=== PATIENT | male | born 1985 | race Caucasian/White ===

== ENCOUNTER 2017-02-09 15:35 | Emergency (ER) | payer SELFPAY ==
[2017-02-09 16:21] VITALS: BP 135/79
[2017-02-09] MEDS ORDERED: Tetan/Diph/Pertus SYR(Tdap)* 0.5 ML SYR(BOOSTRIX) use SYR IM ONE (17:31)
[2017-02-09] MEDS ORDERED: cefTRIAXone VIAL(*) 1,000 MG VIAL IM ONE (17:31)
--- NOTE | 2017-02-09 17:31 | UC ---
Skin Complaint HPI - HPI Summary HPI Summary: PICKING UP GARBAGE YESTERDAY AND SUFFERED A LACERATION IN WEBSPACE BETWEEN 4TH AND 5TH FINGERS LEFT HAND. TODAY DEVELOPED SWELLING, REDNESS AND PAIN. NOT UTD TETANUS. NO FEVER. - History of Current Complaint Chief Complaint: UCWounds Time Seen by Provider: 02/09/17 17:21 Stated Complaint: HAND INJURY Hx Obtained From: Patient Onset/Duration: Sudden Onset, Lasting Hours, Still Present Timing: Constant Onset Severity: Mild Current Severity: Moderate Pain Intensity: 3 Pain Scale Used: 0-10 Numeric Location: Hand (Left) Character: Swelling, Pain, Redness Aggravating: Touch - MOVEMENT Alleviating: Nothing Associated Signs & Symptoms: Positive: Tenderness, Red Streaks - Allergy/Home Medications Allergies/Adverse Reactions: Allergies Allergy/AdvReac Type Severity Reaction Status Date / Time Bee Venom Allergy Severe Anaphylatic Verified 06/01/16 13:59 Shock Iodine Allergy Severe Anaphylatic Verified 06/01/16 13:59 Shock narcotic pain medication Allergy 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/01/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 Home Medications: Home Medications Gabapentin 2,400 mg PO DAILY 02/09/17 [History Confirmed 02/09/17] Suboxone 4 mg SL DAILY 02/09/17 [History Confirmed 02/09/17] buPROPion TAB* [Wellbutrin TAB*] 1 tab PO BID 02/09/17 [History Confirmed ] Review of Systems Constitutional: Negative Skin: Other - RED STREAKS, LACERATION Respiratory: Negative Cardiovascular: Negative Gastrointestinal: Negative Musculoskeletal: Arthralgia, Decreased ROM, Edema All Other Systems Reviewed And Are Negative: Yes PMH/Surg Hx/FS Hx/Imm Hx Endocrine History Of: Denies: Diabetes, Thyroid Disease Cardiovascular History Of: Denies: Cardiac Disorders, Hypertension Respiratory History Of: Denies: COPD, Asthma GI/ History Of: Denies: Ulcer Psychological History Of: Reports: Anxiety, Depression - Surgical History Surgical History: Yes Surgery Procedure, Year, and Place: ingrown toenails. Hernia repair - Family History Known Family History: Positive: Cardiac Disease, Hypertension - Social History Alcohol Use: None Substance Use Type: Marijuana Substance Use Comment - Amount & Last Used: occasional- in recovery on suboxone Smoking Status (MU): Current Every Day Smoker Type: Cigarettes Amount Used/How Often: <1 PPD Length of Time of Smoking/Using Tobacco: 11 years Have You Smoked in the Last Year: Yes - Immunization History Most Recent Influenza Vaccination: season Most Recent Tetanus Shot: unknown Physical Exam Triage Information Reviewed: Yes Appearance: Well-Appearing, No Pain Distress, Well-Nourished Vital Signs: Initial Vital Signs Temp 99.3 F 02/09/17 16:12 Pulse 78 02/09/17 16:12 Resp 18 02/09/17 16:12 BP 135/79 02/09/17 16:12 Pulse Ox 99 02/09/17 16:12 Vital Signs Reviewed: Yes ENT: Positive: Hearing grossly normal Neck: Positive: Supple Respiratory: Positive: No respiratory distress, No accessory muscle use Cardiovascular: Positive: Pulses Normal Abdomen Description: Positive: Soft Musculoskeletal: Positive: Edema @ - LEFT HAND SWELLING AND REDNESS EXTENDING PROXIMALLY UP FOREARM. TTP. Neurological: Positive: Alert Psychological: Positive: Age Appropriate Behavior Skin: Positive: Other - LEFT HAND SWELLING AND REDNESS EXTENDING PROXIMALLY UP FOREARM. 0.8CM LACERATION WEBSPACE BETWEEN 4TH AND 5TH FINGERS. Course/Dx - Course Course Of Treatment: ROCEPHIN 1G IM, TORADOL 60MG IM GIVEN. TDAP BOOSTED. BACTRIM BID. FOLLOW-UP IN ER IN 2-3 DAYS IF NOT IMPROVING. KEEP COOL, CLEAN AND DRY. - Diagnoses Provider Diagnoses: 1. LACERATION LEFT HAND - NO REPAIR. 2. CELLULITIS LEFT HAND Discharge - Discharge Plan Condition: Stable Disposition: HOME Prescriptions: Ibuprofen TAB* [Motrin TAB* 800 MG] 800 mg PO Q8H PRN #30 tab PRN Reason: Pain Sulfamethox/Trimethoprim DS* [Bactrim DS 800/160 TAB*] 1 tab PO BID #26 tab Patient Education Materials: Cellulitis (ED), Laceration Without Closure (ED) Forms: *Work Release Referrals: Rivera Thompson MD [Medical Doctor] - 3 Days Additional Instructions: YOU HAVE DEVELOPED A SKIN INFECTION FROM THE CUT IN BETWEEN YOUR FINGERS. THIS HAS NOT BEEN CLOSED DUE TO CONCERN ABOUT DEVELOPING WORSENING INFECTION AND DRAINAGE. TAKE THE ANTIBIOTICS PRESCRIBED STARTING TONIGHT. YOU SHOULD NOTICE IMPROVEMENT WITHIN THE NEXT 48 HOURS. GO TO THE ER WITHOUT FAIL IF YOU DO NOT IMPROVE EXPECTED. TETANUS IMMUNIZATION GIVEN: You have been given an immunization against tetanus. Please record this in your records. In general, a booster is needed only once every 10 years. The tetanus shot protects against tetanus or "lockjaw," which is a complication of certain wound infections (the tetanus shot cannot protect against the actual infection). The immunization site may become warm and red due to local reaction. If this occurs, apply warm compresses and take aspirin or ibuprofen to reduce inflammation and discomfort. Return for evaluation if the reaction becomes severe.
[2017-02-09] MEDS ORDERED: Lidocaine 1% MPF* 2 ML VIAL ONE (17:43)
[2017-02-09] MEDS ORDERED: Ketorolac INJ* 60 MG/2 ML VIAL IM ONE (18:05)
== END 2017-02-09 19:12 | disposition home or self-care (01) ==
LOC: UCEAST 15:35
DX: S61.412A Laceration without foreign body of left hand, initial encounter (principal); L03.114 Cellulitis of left upper limb; W45.8XXA Other foreign body or object entering through skin, initial encounter; Y93.89 Activity, other specified; Y92.9 Unspecified place or not applicable; Z23 Encounter for immunization; Z88.5 Allergy status to narcotic agent; F17.210 Nicotine dependence, cigarettes, uncomplicated
CPT/HCPCS: 90715; 96372; 99212; G0463; J0696; J1885

== ENCOUNTER 2017-05-29 13:16 | Emergency (ER) | payer SELFPAY ==
[2017-05-29 13:28] VITALS: BP 138/76
[2017-05-29] MEDS ORDERED: diPHENhydraMINE PO* 50 MG PO ONE (13:40)
[2017-05-29] MEDS ORDERED: predniSONE TAB* 20 MG PO ONE (13:40)
--- NOTE | 2017-05-29 13:41 | UC ---
Allergic Reaction HPI - HPI Summary HPI Summary: concerned he may have a reaction to a bee sting that he just recieved has had reactions in the past---no longer has an epi-pen - History of Current Complaint Chief Complaint: UCAllergicReaction Stated Complaint: POSSIBLE ALLERGIC REACTION Time Seen by Provider: 05/29/17 13:36 Hx Obtained From: Patient Onset/Duration: Sudden Onset Severity Initially: Mild Severity Currently: Mild Pain Intensity: 1 - at site of sing right hand 2 nd knuckle Pain Scale Used: 0-10 Numeric Location: Discrete @ Aggrevating Factor(s): Nothing Alleviating Factor(s): Nothing Associated Signs And Symptoms: Positive: Negative - Related Hx Possible Reaction To: Insect - Allergies/Home Medications Allergies/Adverse Reactions: Allergies Allergy/AdvReac Type Severity Reaction Status Date / Time Bee Venom Allergy Severe Anaphylatic Verified 05/29/17 13:28 Shock Iodine Allergy Severe Anaphylatic Verified 05/29/17 13:28 Shock narcotic pain medication Allergy Severe hx of Uncoded 05/29/17 13:28 addiction PMH/Surg Hx/FS Hx/Imm Hx Previously Healthy: No - early recovery opiate abuse - Surgical History Surgical History: Yes Surgery Procedure, Year, and Place: ingrown toenails. Hernia repair - Family History Known Family History: Positive: Cardiac Disease, Hypertension - Social History Occupation: Employed Part-time Lives: With Family Alcohol Use: None Substance Use Type: Marijuana Substance Use Comment - Amount & Last Used: occasional- in recovery on suboxone Smoking Status (MU): Current Every Day Smoker Type: Cigarettes Amount Used/How Often: <1 PPD Length of Time of Smoking/Using Tobacco: 11 years Have You Smoked in the Last Year: Yes Cessation Counseling: Patient Advised to Stop - Immunization History Most Recent Influenza Vaccination: season Most Recent Tetanus Shot: unknown Review of Systems Constitutional: Negative Skin: Other - erythema at site of sting right hand 2nd mcp joint Eyes: Negative ENT: Negative Respiratory: Negative Cardiovascular: Negative Gastrointestinal: Negative Genitourinary: Negative Motor: Negative Neurovascular: Negative Musculoskeletal: Negative Neurological: Negative Psychological: Negative All Other Systems Reviewed And Are Negative: Yes Physical Exam Triage Information Reviewed: Yes Appearance: Well-Appearing, No Pain Distress, Well-Nourished Vital Signs: Initial Vital Signs Temp 99 F 05/29/17 13:23 Pulse 106 07/22/17 13:23 Resp 20 05/29/17 13:23 BP 138/76 05/29/17 13:23 Pulse Ox 99 05/29/17 13:23 Vital Signs Reviewed: Yes Eye Exam: Normal Eyes: Positive: Conjunctiva Clear ENT Exam: Normal ENT: Positive: Normal ENT inspection, Hearing grossly normal, Pharynx normal. Negative: Nasal congestion, Nasal drainage, Trismus, Muffled/hoarse voice Dental Exam: Normal Neck exam: Normal Neck: Positive: Supple, Nontender, No Lymphadenopathy Respiratory Exam: Normal Respiratory: Positive: Chest non-tender, Lungs clear, Normal breath sounds, No respiratory distress, No accessory muscle use Cardiovascular Exam: Normal Cardiovascular: Positive: RRR, No Murmur, Pulses Normal, Brisk Capillary Refill Abdominal Exam: Normal Abdomen Description: Positive: Nontender, No Organomegaly, Soft Bowel Sounds: Positive: Present Musculoskeletal Exam: Normal Musculoskeletal: Positive: Strength Intact, ROM Intact, No Edema Neurological Exam: Normal Neurological: Positive: Alert, Muscle Tone Normal, Fatigued Psychological Exam: Normal Skin Exam: Normal, Other Skin: Positive: Other - erythema right hand MCP joint---no hives Re-Evaluation - Re-Evaluation Second Eval Re-Evaluation Time: 14:00 Change: Improved - feels better--- Allergic Reaction Course/Dx - Course Course Of Treatment: continue prednisone and benadryl for 4 days ice to sting follow prn - Differential Dx/Diagnosis Differential Diagnosis/HQI/PQRI: Anaphylaxis, Bronchospasm, Local Allergic Reaction, Urticaria Provider Diagnoses: 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
== END 2017-05-29 14:42 | disposition home or self-care (01) ==
LOC: UCEAST 13:16
DX: T63.441A Toxic effect of venom of bees, accidental (unintentional), initial encounter (principal); Y92.9 Unspecified place or not applicable; F17.200 Nicotine dependence, unspecified, uncomplicated
CPT/HCPCS: 99212; A9270-GY; G0463; J7512

== ENCOUNTER 2018-06-09 09:39 | Emergency (ER) | payer BC, MEDICAID ==
[2018-06-09 10:08] VITALS: BP 119/77
--- NOTE | 2018-06-09 10:31 | ED ---
Throat Pain/Nasal Congestion - HPI Summary HPI Summary: 32-year-old male presents with discharge and eye redness for the past 2 days. He denies any foreign body in the eye. He doesn't wear contacts or glasses. He denies any change in vision. He admits to photophobia. his eye feel itchy. He states he doesn't have a history of pinkeye. He states that it only in right eye and is not in his left. He denies any history of seasonal allergies. He's never had this before. He denies any sinus congestion. no fevers. No sore throat. He hasn't tried anything.for his symptoms. has been waking up with eye crusted and pus drainage - History of Current Complaint Chief Complaint: UCEye Time Seen by Provider: 06/09/18 10:21 - Allergies/Home Medications Allergies/Adverse Reactions: Allergies Allergy/AdvReac Type Severity Reaction Status Date / Time bee venom protein (honey bee) Allergy Anaphylatic Verified 06/09/18 09:59 Shock iodine Allergy Anaphylatic Verified 06/09/18 09:59 Shock narcotic pain medication Allergy 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/09/18 09:59 addiction Home Medications: Home Medications ValACYclovir (*) [Valtrex 500 mg (*)] 500 mg PO DAILY PRN 06/09/18 [History Confirmed 06/09/18] PMH/Surg Hx/FS Hx/Imm Hx Endocrine/Hematology History: Denies: Hx Diabetes, Hx Thyroid Disease Cardiovascular History: Denies: Hx Hypertension Respiratory History: Denies: Hx Asthma, Hx Chronic Obstructive Pulmonary Disease (COPD) GI History: Denies: Hx Ulcer Psychiatric History: Reports: Hx Anxiety, Hx Depression - Surgical History Surgery Procedure, Year, and Place: ingrown toenail procedures. Hernia repair at Infectious Disease History: Yes Infectious Disease History: Reports: Hx of Known/Suspected MRSA, Hx Shingles Denies: Hx Clostridium Difficile, Hx Hepatitis, Hx Human Immunodeficiency Virus (HIV), Hx Tuberculosis, Hx Known/Suspected VRE, Hx Known/Suspected VRSA, History Other Infectious Disease, Traveled Outside the [place] in Last 30 Days - Family History Known Family History: Positive: Cardiac Disease, Hypertension - Social History Alcohol Use: None Substance Use Type: Reports: None Substance Use Comment - Amount & Last Used: occasional- in recovery on suboxone Smoking Status (MU): Current Every Day Smoker Type: Cigarettes Amount Used/How Often: pt states vapes Length of Time of Smoking/Using Tobacco: 11 years Have You Smoked in the Last Year: Yes Review of Systems Negative: Fever Positive: Drainage, Erythema Negative: Chest Pain Negative: Shortness Of Breath All Other Systems Reviewed And Are Negative: Yes Physical Exam Triage Information Reviewed: Yes Vital Signs On Initial Exam: Initial Vitals Temp Pulse Resp BP Pulse Ox 99 F 89 16 119/77 98 06/09/18 10:02 06/09/18 10:06/09/18 10:06/09/18 10:06/09/18 10:02 Vital Signs Reviewed: Yes Appearance: Positive: Well-Appearing Skin: Positive: Warm, Dry Head/Face: Positive: Normal Head/Face Inspection Eyes: Positive: EOMI, VIANCA, Conjunctiva Inflammed, Discharge, Other: - normal fundoscopic exam ENT: Positive: Normal ENT inspection, Pharynx normal, TMs normal Respiratory/Lung Sounds: Positive: Clear to Auscultation, Breath Sounds Present Cardiovascular: Positive: Normal, RRR Musculoskeletal: Positive: Normal Neurological: Positive: Normal Psychiatric: Positive: Normal Diagnostics - Vital Signs Vital Signs Temp Pulse Resp BP Pulse Ox 06/09/18 10:02 99 F 89 16 119/77 98 - Laboratory Lab Statement: Any lab studies that have been ordered have been reviewed, and results considered in the medical decision making process. EENT Course/Dx - Course Course Of Treatment: 32-year-old male presents with discharge and eye redness for the past 2 days. He denies any foreign body in the eye. He doesn't wear contacts or glasses. He denies any change in vision. He admits to photophobia. his eye feel itchy. He states he doesn't have a history of pinkeye. He states that it only in right eye and is not in his left. He denies any history of seasonal allergies. He's never had this before. He denies any sinus congestion. no fevers. No sore throat. He hasn't tried anything for his symptoms. on exam right eye conjunctiva injected. no foreign body seen. will treat with polytrim. patient understand and agrees with plan. . - Differential Diagnoses Differential Diagnoses: Conjunctivitis, Corneal Abrasion, Foreign Body - Diagnoses Provider Diagnoses: Conjunctivitis Discharge - Sign-Out/Discharge Documenting (check all that apply): Patient Departure - Discharge Plan Condition: Good Disposition: HOME Prescriptions: Polymyx/Trimethoprim OPTH* [Polytrim OPHTH*] 1 drop RIGHT EYE QID #1 btl Patient Education Materials: Conjunctivitis (ED) Forms: *Gen. Provider Communication Referrals: Rivera Thompson MD [Primary Care Provider] - Param Yao MD [Medical Doctor] - Additional Instructions: Place 1 drop in eye four times a day for 7 days Wash hands Follow up with ophthalmology if no improvement Return to ED if develop any new or worsening symptoms - Billing Disposition and Condition Condition: GOOD Disposition: Home Attestation Statement User Type: Provider - I was available for consult. This patient was seen by the ADAM. The patient was not presented to, seen by, or examined by me. -[place]
== END 2018-06-09 10:44 | disposition home or self-care (01) ==
LOC: UCEAST 09:39
DX: H10.31 Unspecified acute conjunctivitis, right eye (principal); Z88.5 Allergy status to narcotic agent; Z88.3 Allergy status to other anti-infective agents; Z91.030 Bee allergy status; F17.210 Nicotine dependence, cigarettes, uncomplicated
CPT/HCPCS: 99212; G0463